=== PATIENT | female | born 1940 | race Caucasian/White ===

== ENCOUNTER 2020-06-07 16:03 | Emergency (ER) | payer OTHER ==
[~2020-06-07] VITALS: Ht 152.4 cm; Wt 62.6 kg
== END 2020-06-07 22:40 | disposition home or self-care (01) ==
LOC: ER 16:03
DX: E87.1 Hypo-osmolality and hyponatremia (principal); Z03.818 Encounter for observation for suspected exposure to other biological agents ruled out; R19.7 Diarrhea, unspecified; R11.2 Nausea with vomiting, unspecified